=== PATIENT | female | born 1950 | race Caucasian/White ===

== ENCOUNTER 2021-12-09 10:50 | Day surgery (SDC) | payer MEDICARE ==
[2021-12-08 11:16] VITALS: BMI 28.1
[~2021-12-09 10:50] MED LIST: LACTATED RINGERS 1,000 ML IV SCH
[2021-12-09 11:29] VITALS: TEMP 97.2
[2021-12-09] MEDS ORDERED: PROPOFOL 10 MG/ML 20 ML VIAL IV ONE (12:12)
--- NOTE | 2021-12-09 12:30 | P.PCN ---
Date of Procedure: 12/09/21 Procedure(s) Performed: BRIEF HISTORY: Patient is a 71-year-old pleasant white female scheduled for an elective colonoscopy as a part of evaluation of prior history of colon polyps. Last colonoscopy was 6 years and was noted to have an adenoma. PROCEDURE PERFORMED: Colonoscopy. PREOPERATIVE DIAGNOSIS: History of colon polyps. IV sedation per Anesthesia. PROCEDURE: After informed consent was obtained, the patient, was brought into the endoscopy unit. IV sedation was administered by Anesthesia under continuous monitoring. Digital rectal examination was normal. Initially the Olympus CF-160 flexible video colonoscope was then inserted in the rectum, gradually advanced into the sigmoid colon and further advancement was not possible. The scope was removed and a. Coloscopy was then introduced into the rectum and gently advanced into the cecum without any difficulty. Careful examination was p erformed as the scope was gradually being withdrawn. Ileocecal valve and the appendiceal orifice were visualized and appeared normal. Prep was good. Mucosa of the cecum, ascending colon, transverse colon, descending colon, sigmoid colon, and rectum appeared normal. Scattered sigmoid diverticulosis seen. Retroflexion was performed in the rectum and no lesions were seen. The patient tolerated the procedure well. IMPRESSION: Normal-appearing colon from rectum to cecum no of colon rectal neoplasia. Scattered sigmoid diverticulosis RECOMMENDATIONS: Findings of this examination were discussed with the patient as well as a family. She was advised to have a repeat screening colonoscopy in 5 years from now because of prior history of colon polyps.
[2021-12-09 12:33] VITALS: RESP 16
[2021-12-09 12:50] VITALS: BP 153/79; PULSE 69
== END 2021-12-09 13:08 | disposition home or self-care (01) ==
LOC: ORWHC2ENDO 10:50
PROVIDERS: ATTEND Internal Medicine Gastroenterology
DX: Z12.11 Encounter for screening for malignant neoplasm of colon (principal); K57.30 Diverticulosis of large intestine without perforation or abscess without bleeding; Z86.010 Personal history of colon polyps; I10 Essential (primary) hypertension; E07.9 Disorder of thyroid, unspecified; Z96.651 Presence of right artificial knee joint; Z98.890 Other specified postprocedural states; Z79.890 Hormone replacement therapy; Z88.5 Allergy status to narcotic agent; Z79.899 Other long term (current) drug therapy; Z91.040 Latex allergy status
CPT/HCPCS: J2704; G0105